=== PATIENT | female | born 1955 | race Caucasian/White ===

== ENCOUNTER 2017-04-03 11:22 | Emergency (ER) | payer OTHER ==
--- NOTE | 2017-04-03 11:30 | Emergency Department Record ---
History of Present Illness - General Chief complaint: Extremity Problem Stated complaint: RIGHT ARM/SHOULDER PAIN Time Seen by Provider: 04/03/17 11:25 Source: Patient Mode of Arrival: Ambulatory Limitations: No limitations - History of Present Illness Initial comments: 61 yo female presents with right shoulder pain that started the last two days. The pain has increased after doing a large load of laundry. She has pain with light. No fevers or chills. No redness or warmth. No other current medical concerns. No fevers, nausea, cough, abdominal or chest pain. PCP is Solomon Doran MD Complaint: Extremity pain, Joint pain -: Days(s) Location: Right, Shoulder History of Same: Yes -: Yes Arthralgia Radiation: Proximal Quality: Aching Consistency: Constant Improves with: Immobilization Worsens with: Exertion, Palpation, Weight bearing Associated Symptoms: Denies other symptoms - Related Data Home Medications Medication Instructions Recorded Confirmed Last Taken Dulaglutide [Trulicity] 1.5 mg SQ ASDIR 04/03/17 04/03/17 04/02/17 Insulin Glargine,Hum.rec.anlog 14 units SQ ASDIR 04/03/17 04/03/17 04/02/17 [Lantus] Losartan Potassium [Cozaar] 25 mg PO QHS 04/03/17 04/03/17 04/02/17 Metformin HCl [Metformin HCl ER] 500 mg PO BID 04/03/17 04/03/17 04/03/17 Pioglitazone HCl [Actos] 30 mg PO DAILY 04/03/17 04/03/17 04/03/17 Previous Rx's Medication Instructions Recorded Hydrocodone/Acetaminophen [[place] 1 each PO Q8H #12 tablet 04/03/17 5-325 Tablet] Allergies Allergy/AdvReac Type Severity Reaction Status Date / Time No Known Drug Allergies Allergy Verified 04/03/17 11:26 Review of Systems Constitutional: Denies: Chills, Fever, Malaise, Weakness Eyes: Denies: Eye discharge ENT: Denies: Congestion, Throat pain Respiratory: Denies: Cough, Dyspnea, Hemoptysis, Stridor, Wheezes Cardiovascular: Denies: Chest pain, Palpitations, Syncope Endocrine: Denies: Fatigue Gastrointestinal: Denies: Abdominal pain, Diarrhea, Nausea, Vomiting Genitourinary: Denies: Dysuria, Urgency Musculoskeletal: Reports: As per HPI, Arthralgia, Myalgia. Denies: Back pain, Joint swelling, Neck pain Skin: Denies: Bruising, Change in color, Rash Neurological: Denies: Headache, Numbness, Tremors, Weakness Psychiatric: Denies: Anxiety Hematological/Lymphatic: Denies: Blood Clots, Easy bleeding, Easy bruising, Swollen glands Physical Exam - General General Appearance: Alert, Oriented x3, Cooperative, No acute distress Limitations: No limitations - Head Head exam: Atraumatic, Normal inspection - Eye Eye exam: Normal appearance. negative: Conjunctival injection, Periorbital swelling - ENT ENT exam: Normal exam, Mucous membranes moist Ear exam: Normal external inspection Nasal Exam: Normal inspection - Neck Neck exam: Normal inspection, Full ROM. negative: Meningismus, Tenderness - Respiratory Respiratory exam: Normal lung sounds bilaterally. negative: Respiratory distress, Rhonchi, Stridor, Wheezes - Cardiovascular Cardiovascular Exam: Regular rate, Normal rhythm, Normal heart sounds Peripheral Pulses: 2+: Radial (R) - GI/Abdominal GI/Abdominal exam: Soft. negative: Tenderness - Rectal Rectal exam: Deferred - exam: Deferred - Extremities Extremities exam: Normal inspection, Normal capillary refill, Tenderness. negative: Full ROM, Joint swelling, Pedal edema Image of Full Body: 1 - tender anterior and lateral as well as superior, no warmth or redness, Internal and external rotation intact with mild pain.. Increased pain with abduction - Back Back exam: Reports: Normal inspection, Full ROM. Denies: Muscle spasm, Rash noted, Tenderness - Neurological Neurological exam: Alert, Normal gait, Oriented X3. negative: Motor sensory deficit - Psychiatric Psychiatric exam: Normal affect, Normal mood. negative: Agitated, Anxious - Skin Skin exam: Dry, Intact, Normal color, Warm. negative: Cyanosis, Mottled Course - Reevaluation(s) Reevaluation #1: 04/03/17 11:32 The right shoulder is tender and pain with certain movements XR ordered No fever or warmth, no redness. 04/03/17 12:05 XR was read as osteopenia, degenerative changes, no fracture DC with instructions for possible rotator cuff disease She is to call her PCP for close follow up We discuss the sling is only to support the shoulder She is to do ROM every 1-2 hours to prevent stiffness or frozen shoulder. Disposition Disposition: Discharge Clinical Impression: Rotator cuff (capsule) sprain Qualifiers: Encounter type: initial encounter Laterality: right Qualified Code(s): S43.421A - Sprain of right rotator cuff capsule, initial encounter Disposition: Home, Self-Care Condition: (1) Good Instructions: Rotator Cuff Injury (ED) Additional Instructions: Ice to help with swelling or inflammation Call your doctor tomorrow for close follow up Use the sling only for comfort and support. Every 2-3 hours take the sling off and gently move the arm as you were instructed to prevent stiffening or frozen shoulder. Prescriptions: Hydrocodone/Acetaminophen [[place] 5-325 Tablet] 1 each PO Q8H #12 tablet Forms: Patient Portal Access Time of Disposition: 11:55 Quality - Quality Measures Quality Measures: N/A - Blood Pressure Screening Does Patient Have Any of the Following: No Blood Pressure Classification: Pre-Hypertensive BP Reading Systolic Measurement: 134 Diastolic Measurement: 72 Screening for High Blood Pressure: < Pre-Hypertensive BP, F/U Documented > [ [id number]] Pre-Hypertensive Follow-up Interventions: Referral to alternative/primary care provider.
[2017-04-03] MEDS ORDERED: HYDROCODONE/APAP 5/325MG TABLET PO ONE (11:33)
--- NOTE | 2017-04-04 07:37 | RADIOLOGY REPORT ---
EXAM: RIGHT SHOULDER HISTORY: INJURY. TECHNIQUE: Three views of the right shoulder were performed. FINDINGS: There is osteopenia. There is mild degenerative change. No evidence of fracture or dislocation. IMPRESSION: OSTEOPENIA. MILD DEGENERATIVE CHANGE. JOB NUMBER: [id number] MTDD
== END 2017-04-03 12:15 | disposition home or self-care (01) ==
LOC: ER 11:22
DX: S43.421A Sprain of right rotator cuff capsule, initial encounter (principal); X50.9XXA Other and unspecified overexertion or strenuous movements or postures, initial encounter; Y93.E2 Activity, laundry
CPT/HCPCS: 99283